=== PATIENT | male | born 1975 | race Caucasian/White ===

== ENCOUNTER 2019-08-13 13:48 | Inpatient (IN) | payer OTHER ==
[~2019-08-13] VITALS: Ht 175.3 cm; Wt 127.0 kg
[2019-08-13] MEDS ORDERED: SODIUM CHLORIDE 0.9% 1,000 ML IV ONE (17:22)
[2019-08-13] MEDS ORDERED: MORPHINE SULFATE 4 MG/ML CPJ (NOT FOR IM USE) IV STA (17:22)
[2019-08-13] MEDS ORDERED: ONDANSETRON HCL 4MG/2ML INJ IV STA (17:22)
[2019-08-13 17:36] LABS: BASOPHILS % 0.2 % (0.0-2.0); EOSINOPHILS % 0.2 % (0.0-5.0); HEMATOCRIT. 37.8 % (42.0-52.0); HEMOGLOBIN. 12.8 g/dL (14.0-18.0); LYMPHOCYTES % 15.6 % (20.0-50.0); MEAN CORPUSCULAR VOLUME 85.2 fL (80.0-94.0); MEAN PLATELET VOLUME 8.4 fl (7.4-10.4); MONOCYTES % 4.7 % (2.0-8.0); NEUTROPHILS % 79.3 % (40.0-76.0); PLATELET 151 x1000/uL (130-400); RED BLOOD CELL COUNT 4.43 mill/uL (4.7-6.1); RED CELL DISTRIBUTION WIDTH 15.3 % (11.6-14.6)
[2019-08-13 17:43] LABS: CHLORIDE 81 mEq/L (98-107)
[2019-08-13] MEDS ORDERED: SODIUM CHLORIDE 0.9% 1000ML BAG (SEPSIS BOLUS) IV ONE (18:45)
[2019-08-13] MEDS ORDERED: LEVOFLOXACIN 750MG PREMIX 150 ML IV ONE (18:45)
[2019-08-13 19:22] LABS: ETHANOL BLOOD < 10 mg/dL
[2019-08-13] MEDS ORDERED: DEXTROSE 50% WATER 50ML SYRINGE IV ONE (20:30)
[2019-08-13 21:45] LABS: CLARITY URINE CLOUDY (CLEAR); COLOR URINE DARK YELLOW (YELLOW); KETONES URINE NEGATIVE (NEGATIVE); LEUKOCYTE ESTERASE URINE TRACE (NEGATIVE); NITRITE URINE NEGATIVE (NEGATIVE); OCCULT BLOOD URINE 1+ (NEGATIVE); PROTEIN URINE 1+ (NEGATIVE); SPECIFIC GRAVITY URINE 1.013 (1.005-1.030)
[2019-08-13 21:54] LABS: OPIATES URINE SCREEN PRESUMTIVE POSITIVE (NEGATIVE)
[2019-08-13 21:55] LABS: *AMPHETAMINES SCREEN URINE NEGATIVE (NEGATIVE); *BARBITURATES SCREEN URINE NEGATIVE (NEGATIVE); *BENZODIAZEPINES SCREEN URINE NEGATIVE (NEGATIVE); *COCAINE SCREEN URINE NEGATIVE (NEGATIVE); CANNABINOID URINE SCREEN PRESUMTIVE POSITIVE (NEGATIVE); METHADONE URINE SCREEN NEGATIVE (NEGATIVE); PHENCYCLIDINE URINE SCREEN NEGATIVE (NEGATIVE)
[2019-08-13] MEDS ORDERED: PIPERACILLIN/TAZ 3.375G PREMIX 50 ML IV ONE (22:15)
[2019-08-13] MEDS ORDERED: VANCOMYCIN 1 G PREMIX 200 ML IV SCH ×2 (22:15→23:45)
[2019-08-13] MEDS ORDERED: NA PHOS,M-B/NA PHOS,DI-BA ENEMA 118ML PR PRN (23:45)
[2019-08-13] MEDS ORDERED: GUAIFENESIN 200MG/10ML SUGAR FREE UDC PO PRN (23:45)
[2019-08-13] MEDS ORDERED: LORAZEPAM 2MG/ML CPJ IV PRN (23:45)
[2019-08-13] MEDS ORDERED: CLONIDINE 0.1MG TABLET PO PRN (23:45)
[2019-08-13] MEDS ORDERED: ENOXAPARIN 40MG/0.4ML SYR SUBCUT SCH (23:45)
[2019-08-13] MEDS ORDERED: ACETAMINOPHEN 325MG TABLET PO PRN (23:45)
[2019-08-13] MEDS ORDERED: IPRATROPIUM/ALBUTEROL 0.5-3(2.5)MG/3ML NEB HHN PRN (23:45)
[2019-08-13] MEDS ORDERED: MAGNESIUM/ALUMINUM HYDROXIDE/SIMETHICONE 30ML UDC PO PRN (23:45)
[2019-08-13] MEDS ORDERED: ACETAMINOPHEN 650MG/20.3ML UDC GT PRN (23:45)
[2019-08-13] MEDS ORDERED: ONDANSETRON HCL 4MG/2ML INJ IV PRN (23:45)
[2019-08-13] MEDS ORDERED: LORAZEPAM 0.5MG TABLET PO PRN (23:45)
[2019-08-13] MEDS ORDERED: ACETAMINOPHEN 650MG SUPP PR PRN (23:45)
[2019-08-13] MEDS ORDERED: DIPHENHYDRAMINE 50MG/ML VIAL IV PRN (23:45)
[2019-08-14] VITALS (12 sets, daily range): BP systolic 110–145; BP diastolic 51–92
[2019-08-14] MEDS: HYDROCODONE/ACETAMINOPHEN 5/325MG TABLET PO PRN ×3 (02:01→20:58)
[2019-08-14] MEDS ORDERED: CEFTRIAXONE 1 G PREMIX 50 ML IV SCH (03:00)
[2019-08-14] MEDS ORDERED: VANCOMYCIN 750 MG PREMIX 150 ML IV SCH (03:00)
[2019-08-14] MEDS: SODIUM CHLORIDE 0.9% 1,000 ML IV SCH ×2 (04:30→15:24)
[2019-08-14] MEDS: SODIUM CHLORIDE 0.9% INJ 3ML FLUSH IVF SCH ×2 (06:00→14:00)
[2019-08-14 07:56] LABS: HEMATOCRIT. 35.4 % (42.0-52.0); HEMOGLOBIN. 12.1 g/dL (14.0-18.0); MEAN CORPUSCULAR VOLUME 84.8 fL (80.0-94.0); MEAN PLATELET VOLUME 8.4 fl (7.4-10.4); PLATELET 139 x1000/uL (130-400); RED BLOOD CELL COUNT 4.18 mill/uL (4.7-6.1); RED CELL DISTRIBUTION WIDTH 14.8 % (11.6-14.6)
[2019-08-14 08:26] LABS: CHLORIDE 83 mEq/L (98-107)
[2019-08-14 08:35] LABS: LDL CHOLESTEROL 41 mg/dL (5-100)
[2019-08-14 08:36] LABS: HDL CHOLESTEROL 11 mg/dL (40-59)
[2019-08-14] MEDS ORDERED: FOLIC ACID 1MG TABLET PO SCH (09:00)
[2019-08-14] MEDS ORDERED: THIAMINE HCL 100MG TABLET PO SCH (09:00)
[2019-08-14] MEDS ORDERED: ENOXAPARIN 40MG/0.4ML SYR SUBCUT SCH (09:00)
[2019-08-14] MEDS ORDERED: VANCOMYCIN 1500MG in DEXTROSE 5% WATER 250ML IV NR (12:00)
[2019-08-14 14:01] LABS: PLATELET ESTIMATE NORMAL
[2019-08-14 21:28] LABS: HEPATITIS B SURFACE ANTIGEN NEGATIVE
[2019-08-16 09:06] LABS: COMPLEMENT C3 147 mg/dL (82-167); IMMUNOGLOBULIN A 194 mg/dL (90-386); IMMUNOGLOBULIN G 1426 mg/dL (700-1600); IMMUNOGLOBULIN M 203 mg/dL (20-172)
[2019-08-16 15:06] LABS: ANTI-NUCLEAR ANTIBODIES DIRECT Negative (Negative)
[2019-08-17 09:06] LABS: A/G RATIO 0.4 (0.7-1.7); ALBUMIN 1.4 g/dL (2.9-4.4); ALPHA-1-GLOBULIN 0.7 g/dL (0.0-0.4); ALPHA-2-GLOBULIN 0.7 g/dL (0.4-1.0); BETA GLOBULIN 1.3 g/dL (0.7-1.3); GAMMA GLOBULINS 1.2 g/dL (0.4-1.8); GLOBULIN TOTAL 3.9 g/dL (2.2-3.9); GLOMERULAR BASEMENT MEMB AB 3 units (0-20); M-SPIKE Not Observed g/dL (Not Observed); TOTAL PROTEIN SERUM 5.3 g/dL (6.0-8.5)
[2019-08-17 13:10] LABS: ANTI-CARDIOLIPIN AB IGA < 9 APL U/mL (0-11); ANTI-CARDIOLIPIN AB IGG < 9 GPL U/mL (0-14); ANTI-CARDIOLIPIN AB IGM < 9 MPL U/mL (0-12)
[2019-08-17 15:06] LABS: ANTI-MYELOPEROXIDASE AB < 9.0 U/mL (0.0-9.0); ANTI-PROTEINASE 3 ABS 47.3 U/mL (0.0-3.5)
[2019-08-19 15:06] LABS: ATYPICAL P-ANCA <1:20 titer (Neg:<1:20); CYTOPLASMIC C-ANCA <1:20 titer (Neg:<1:20); PERINUCLEAR P-ANCA <1:20 titer (Neg:<1:20)
== END 2019-08-15 00:08 | disposition short-term general hospital (02) | DRG 872 ==
LOC: ER 13:48 → EDBEDREQ 19:00 → 3WST 23:49 → EDBEDREQ 23:57 → EDBEDREQTM 23:57 → EDBEDREQSVC 23:57 → ENRESERV 08-14 00:06
PROVIDERS: ADMIT Family Medicine; ATTEND Family Medicine
DX: A41.01 Sepsis due to Methicillin susceptible Staphylococcus aureus (principal); E87.1 Hypo-osmolality and hyponatremia; Z68.41 Body mass index [BMI] 40.0-44.9, adult; N17.9 Acute kidney failure, unspecified; E66.01 Morbid (severe) obesity due to excess calories; F10.20 Alcohol dependence, uncomplicated; F40.240 Claustrophobia; K40.90 Unilateral inguinal hernia, without obstruction or gangrene, not specified as recurrent; K59.03 Drug induced constipation; M41.9 Scoliosis, unspecified; M47.817 Spondylosis without myelopathy or radiculopathy, lumbosacral region; M48.061 Spinal stenosis, lumbar region without neurogenic claudication; M54.10 Radiculopathy, site unspecified; M54.30 Sciatica, unspecified side; T40.605A Adverse effect of unspecified narcotics, initial encounter; W18.2XXA Fall in (into) shower or empty bathtub, initial encounter; Z60.2 Problems related to living alone; E83.51 Hypocalcemia; Y92.091 Bathroom in other non-institutional residence as the place of occurrence of the external cause; Y99.8 Other external cause status; Y93.E1 Activity, personal bathing and showering; Z79.899 Other long term (current) drug therapy
CPT/HCPCS: 36415; 71045; 72100; 72131; 74176; 80048; 80061; 80305; 80320; 81003; 82306; 82330; 82533; 82784; 82962; 83036; 83520; 83605; 83930; 83970; 84155; 84165; 84443; 84484; 84550; 85651; 86038; 86140; 86147; 86160; 86256; 86334; 86803; 87077; 87340; 93005; 96365; 96375; 99291; J0696; J1650; J1956; J2060; J2270; J2405; J2543; J3370; J7030; J7060; G0480